=== PATIENT | female | born 1990 ===

== ENCOUNTER 2025-07-07 09:11 | Outpatient (CLI) | payer MEDICAID ==
[2025-07-07] VITALS (21 sets, daily range): BP systolic 110–143; BP diastolic 57–87; PULSE 78–104
--- NOTE | 2025-07-10 20:23 | CARDIOLOGY REPORT ---
DATE OF SERVICE: 07/07/2025 DICTATING PHYSICIAN: Reymundo Luna MD TILT TABLE TEST DATE OF STUDY: 07/07/2025 NAME OF STUDY: Tilt-table test. DESCRIPTION: The patient underwent tilt-table testing per protocol. During testing, the patient remained clinically and hemodynamically stable. No symptoms were reported. IMPRESSION: Negative head up tilt-table test. Reymundo Luna MD TID: [id number] RECEIPT: [id number]
== END 2025-07-07 23:59 | disposition home or self-care (01) ==
LOC: CARD DIAG 09:11
PROVIDERS: ATTEND Physician Assistant
DX: R55 Syncope and collapse (principal)
CPT/HCPCS: 93660